=== PATIENT | male | born 1995 | race American Indian/Alaskan Native ===

== ENCOUNTER 2016-09-01 22:33 | Emergency (ER) | payer SELFPAY ==
[2016-09-01 22:40] VITALS: BP 136/76
[2016-09-02] MEDS ORDERED: MOTRIN PO ONE (06:02)
[2016-09-02] MEDS ORDERED: FLEXERIL PO ONE (06:02)
--- NOTE | 2016-09-02 06:11 | Emergency Department Report ---
HPI - General Chief Complaint: Extremity Injury, Lower Time Seen by Provider: 09/02/16 05:51 - HPI HPI: Vision is a 20-year-old male presents to the ED complaining of right knee pain times couple of weeks. Patient states pain is located to his right lower knee region. Patient describes pain as throbbing and aching type pain. The patient rates pain a 5 out of 10 intensity. Patient denies any fall or injury to right knee. Patient states pain is worse when he presses on his knee it. Patient denies fever/chills/nausea/vomiting/dizziness/chest pain or any other problems. ED Past Medical Hx - Past Medical History Additional medical history: Prior chest pain years ago, no Dx - Social History Smoking Status: Light Tobacco Smoker Substance Use Type: Alcohol - Medications Home Medications: Home Medications Medication Instructions Recorded Confirmed Last Taken Type Cyclobenzaprine HCl [Flexeril 5 MG 5 mg PO TID #15 tab 09/02/16 Unknown Rx TAB] Ibuprofen [Motrin 800 MG tab] 800 mg PO Q8HR PRN #30 tablet 09/02/16 Unknown Rx ED Review of Systems ROS: Stated complaint: RT LEG AND KNEE PAIN Other details as noted in HPI Constitutional: denies: chills, fever Eyes: denies: eye pain, eye discharge, vision change ENT: denies: ear pain, throat pain Respiratory: denies: cough, shortness of breath, SOB with exertion, SOB at rest , wheezing Cardiovascular: denies: chest pain, palpitations Endocrine: no symptoms reported Gastrointestinal: denies: abdominal pain, nausea, vomiting, diarrhea, constipation Genitourinary: denies: urgency, dysuria, testicular pain, testicular mass Musculoskeletal: arthralgia, myalgia. denies: back pain, joint swelling Skin: denies: rash, lesions Neurological: denies: headache, weakness, numbness, paresthesias Psychiatric: denies: anxiety, depression Hematological/Lymphatic: denies: easy bleeding, easy bruising Physical Exam - Physical Exam Vital Signs: Vital Signs 09/01/16 22:36 Temperature 97.7 F Pulse Rate 63 Respiratory 16 Rate Blood Pressure 136/76 O2 Sat by Pulse 100 Oximetry General: Patient alert and oriented 3 and is in no distress Physical Exam: GENERAL: Alert and oriented x3, no apparent distress, Normal Gait, atraumatic. HEAD: Head is normocephalic and a-traumatic. EYES: Extra ocular muscles are intact. Pupils are equal, round, and reactive to light and accommodation. EARS: symetrical, atraumatic, non tender, ear canal clear and moderate cerumen, tympanic membrance non inflamed. gross auditory nml bilaterally. NOSE: Nose symetrical, Nontender,Nares appeared normal. MOUTH:Mouth is well hydrated and without lesions. Tonsils nonerythematous or swollen, Uvula midline, Tongue not elevated. Mucous membranes are moist. Posterior pharynx clear, no exudate or lesions. Patent airways. LUNGS: Symetrical with respiration, No wheezing, no rales or crackles, CTAB. HEART: S1, S2 present, regular rate and rhythm without murmur, no rubs, no gallops. ABDOMEN: No organomegaly was noted,Positive bowel sounds, soft, and non- distended. . Nontender to palpation on all Quadrants, NO CVA tenderness.. EXTREMITIES/MUSCULOSKELETAL: No cyanosis, clubbing, rash, lesions or edema. Full ROM bilaterally. UE/LE Pulses 2+ bilaterally. LE and UE 5+ strength bilaterally. Knees intact bilaterally, mobile Full ROM on R Knee. Mild tenderness to deep palpation of anterior lower knee. No swelling, non erythematous NEUROLOGIC: No focal Deficit, Cranial nerves II through XII are grossly intact. No loss of sensation, No facial droop, Negative rhomberg. SKIN: Warm and dry, No lesions, No ulceration or induration present. ED Course Vital Signs 09/01/16 22:36 Temperature 97.7 F Pulse Rate 63 Respiratory 16 Rate Blood Pressure 136/76 O2 Sat by Pulse 100 Oximetry ED Medical Decision Making - Medical Decision Making 20-year-old male presents with knee strain of the right ED course: She received 800 mg of Motrin and Flexeril. Discussed the patient to follow up with primary care physician as referred. Discussed proper knee exercises. states will comply. Critical care attestation.: If time is entered above; I have spent that time in minutes in the direct care of this critically ill patient, excluding procedure time. ED Disposition Clinical Impression: Strain of knee and leg, right Disposition: DISCHARGED TO HOME OR SELFCARE Is pt being admited?: No Does the pt Need Aspirin: No Condition: Stable Instructions: Muscle Strain (ED), RICE Therapy (ED), Knee Exercises (GEN) Prescriptions: Cyclobenzaprine HCl [Flexeril 5 MG TAB] 5 mg PO TID #15 tab Ibuprofen [Motrin 800 MG tab] 800 mg PO Q8HR PRN #30 tablet PRN Reason: Pain Referrals: PRIMARY CARE, [Primary Care Provider] - 3-5 Days [facility] [Outside] - 3-5 Days [facility] [Outside] - 3-[address] [facility] [Outside] - 3-5 Days Time of Disposition: 06:14
== END 2016-09-02 06:30 | disposition home or self-care (01) ==
LOC: ED 22:33
DX: S86.811A Strain of other muscle(s) and tendon(s) at lower leg level, right leg, initial encounter (principal); F17.200 Nicotine dependence, unspecified, uncomplicated; X58.XXXA Exposure to other specified factors, initial encounter; Y93.9 Activity, unspecified; Y99.9 Unspecified external cause status; Y92.9 Unspecified place or not applicable
CPT/HCPCS: 99282